=== PATIENT | male | born 1980 | race Caucasian/White ===

== ENCOUNTER 2022-11-29 10:10 | Emergency (ER) | payer OTHER, MEDICAID ==
[~2022-11-29] VITALS: Ht 182.9 cm; Wt 110.0 kg
[2022-11-29] MEDS ORDERED: GOOD NEIGHBOR200 M1 PO (10:22)
[2022-11-29] MEDS ORDERED: NORCO 325 MG-51 TA1 PO (11:32)
[2022-11-29 11:44] VITALS: BP 131/91
== END 2022-11-29 11:48 | disposition home or self-care (01) ==
LOC: ED 10:10
DX: S20.211A Contusion of right front wall of thorax, initial encounter (principal); Z28.310 Unvaccinated for COVID-19; W01.0XXA Fall on same level from slipping, tripping and stumbling without subsequent striking against object, initial encounter

== ENCOUNTER → 2024-09-11 | Outpatient (CLI) | payer MEDICAID ==
[~2024-09-11] MED LIST: GOOD NEIGHBOR200 M1 PO; NORCO 325 MG-51 TA1 PO
== END ==
LOC: RAD 11:17
DX: M51.369 Other intervertebral disc degeneration, lumbar region without mention of lumbar back pain or lower extremity pain (principal); M51.379 Other intervertebral disc degeneration, lumbosacral region without mention of lumbar back pain or lower extremity pain; M43.17 Spondylolisthesis, lumbosacral region; M47.816 Spondylosis without myelopathy or radiculopathy, lumbar region

== ENCOUNTER → 2024-10-23 | Outpatient (CLI) | payer MEDICAID | LOC: LAB 10:15 | DX: K30 Functional dyspepsia (principal); K92.1 Melena ==

== ENCOUNTER → 2024-11-21 | Outpatient (CLI) | payer MEDICAID | LOC: RAD 07:30 | DX: M47.816 Spondylosis without myelopathy or radiculopathy, lumbar region (principal); M47.817 Spondylosis without myelopathy or radiculopathy, lumbosacral region; M48.061 Spinal stenosis, lumbar region without neurogenic claudication; M48.07 Spinal stenosis, lumbosacral region; M43.17 Spondylolisthesis, lumbosacral region ==

== ENCOUNTER → 2024-12-11 | Day surgery (SDC) | payer MEDICAID ==
[~2024-12-11] MED LIST changes: +fentaNYL 100 MCG/2 ML VIAL ONE
== END | disposition home or self-care (01) ==
LOC: MSO 08:05
DX: K92.1 Melena (principal); D12.8 Benign neoplasm of rectum; E66.9 Obesity, unspecified; F17.220 Nicotine dependence, chewing tobacco, uncomplicated
CPT/HCPCS: 00811; J2704; J3010; J7120